=== PATIENT | female | born 1995 | race Asian ===

== ENCOUNTER → 2016-08-02 | Outpatient (CLI) | payer BC, MEDICAID ==
[2016-08-04 07:53] LABS: PROGESTERONE 9.1 ng/mL (.)
== END ==
LOC: LAB 14:10
DX: Z31.41 Encounter for fertility testing (principal); E28.9 Ovarian dysfunction, unspecified; Z11.3 Encounter for screening for infections with a predominantly sexual mode of transmission; Z11.59 Encounter for screening for other viral diseases; Z11.4 Encounter for screening for human immunodeficiency virus [HIV]; Z01.84 Encounter for antibody response examination; Z11.8 Encounter for screening for other infectious and parasitic diseases; Z13.29 Encounter for screening for other suspected endocrine disorder
CPT/HCPCS: 36415; 82670; 84144; 84702

== ENCOUNTER → 2016-08-19 | Outpatient (CLI) | payer BC | LOC: RAD 15:07 | DX: E28.2 Polycystic ovarian syndrome (principal) | CPT/HCPCS: 76830 ==

== ENCOUNTER → 2016-09-03 | Outpatient (CLI) | payer BC | LOC: LAB 15:03 | PROVIDERS: ATTEND Obstetrics & Gynecology Reproductive Endocrinology | DX: E28.9 Ovarian dysfunction, unspecified (principal) | CPT/HCPCS: 36415; 84144; 84702 ==

== ENCOUNTER → 2016-10-01 | Outpatient (CLI) | payer BC | LOC: RAD 15:28 | DX: E28.2 Polycystic ovarian syndrome (principal) | CPT/HCPCS: 76830 ==

== ENCOUNTER → 2016-11-12 | Outpatient (CLI) | payer BC | LOC: LAB 18:45 | DX: E28.2 Polycystic ovarian syndrome (principal) | CPT/HCPCS: 36415; 82670 ==

== ENCOUNTER → 2017-01-18 | Outpatient (CLI) | payer BC ==
--- NOTE | 2017-01-18 14:47 | RADIOLOGY REPORT (SQ) ---
EXAM DESCRIPTION: U/S NON-OB PELVIS TV W/O DOP COMPLETED DATE/TIME: 01/18/2017 2:24 pm REASON FOR STUDY: OVARIAN DYSFUNCTION, UNSPECIFIED (E28.9) E28.9 OVARIAN DYSFUNCTION, UNSPECIFIED COMPARISON: Pelvic ultrasound 10/08/2016, 10/01/2016, 08/19/2016 TECHNIQUE: Dynamic and static grayscale images acquired of the pelvis via transvaginal approach and recorded on PACS. Additional selected color Doppler and spectral images recorded. LIMITATIONS: None. FINDINGS: UTERUS: Contour normal. No mass. ENDOMETRIAL STRIPE: Proliferative triple line pattern, overall thickness 8.5 mm CERVIX: No nabothian cysts. RIGHT OVARY: No abnormal masses. Right ovary is 2.7 x 2.1 x 2.1 cm in size. There are 9 ovarian foll icles identified RIGHT OVARY DOPPLER: Normal arterial vascular flow without evidence for torsion. LEFT OVARY: No abnormal masses. Left ovary 3.1 x 1.9 x 1.4 cm in size. LEFT OVARY DOPPLER: Normal arterial vascular flow without evidence for torsion. There are 7 ovarian follicles identified. FREE FLUID: None noted. OTHER: No other significant finding. IMPRESSION: NORMAL TRANSVAGINAL PELVIC ULTRASOUND. TECHNICAL DOCUMENTATION: JOB ID: [id number] [employer]- All Rights Reserved
== END ==
LOC: RAD 13:12
DX: E28.9 Ovarian dysfunction, unspecified (principal)
CPT/HCPCS: 76830

== ENCOUNTER 2017-03-07 11:10 | Emergency (ER) | payer SELFPAY ==
--- NOTE | 2017-03-07 11:43 | ER Document Report ---
ED Fall - General Chief Complaint: Fall Stated Complaint: FALL,NECK AND BACK PAIN Time Seen by Provider: 03/07/17 11:23 Mode of Arrival: Ambulatory Information source: Patient Notes: 21-year-old female presents to ED for pain in her left upper back. She states she was getting ready to go for work at 530 this morning and she ran upstairs to go to the bathroom tripped going down the stairs fell down the stairs grabbed the rail trying to stop herself and injured her left shoulder and upper back. TRAVEL OUTSIDE OF THE [place] IN LAST 30 DAYS: No - HPI Occurred: This morning Where: Home, Indoors Context: Tripped Associated symptoms: None Location of injury/pain: Back, Shoulder Quality of pain: Sharp Severity: Moderate Pain Level: 3 - Related data Allergies/Adverse Reactions: No Known Allergies Allergy (Verified 03/07/17 11:13) Past Medical History - General Information source: Patient - Social History Smoking Status: Current Every Day Smoker Cigarette use (# per day): Yes - 4 cigarettes a day Chew tobacco use (# tins/day): No Smoking Education Provided: Yes - Less than 2 minutes Frequency of alcohol use: Occasional Drug Abuse: None Occupation: [employer] Lives with: Family Family History: Arthritis, COPD, DM, Malignancy Patient has suicidal ideation: No Patient has homicidal ideation: No - Past Medical History Cardiac Medical History: Reports: None Pulmonary Medical History: Reports: Hx Asthma EENT Medical History: Reports: None Neurological Medical History: Reports: None Endocrine Medical History: Reports: None Renal/ Medical History: Reports: Other - Preeclampsia with high blood pressure , miscarriage in 2016 GI Medical History: Reports: None Musculoskeltal Medical History: Reports Hx Muscle Spasm - wrist sprain, Reports Other - Couple tunnel Skin Medical History: Reports None Psychiatric Medical History: Reports: Hx Depression Traumatic Medical History: Reports: None Infectious Medical History: Reports: None Past Surgical History: Reports: Hx Breast Surgery - Breast lift, Hx Orthopedic Surgery - Carpal tunnel release - Immunizations Immunizations up to date: No Hx Diphtheria, Pertussis, Tetanus Vaccination: No Review of Systems - Review of Systems Constitutional: No symptoms reported EENT: No symptoms reported Cardiovascular: No symptoms reported Respiratory: No symptoms reported Gastrointestinal: No symptoms reported Genitourinary: No symptoms reported Female Genitourinary: No symptoms reported Musculoskeletal: Back pain - Left upper back and shoulder pain, Muscle pain, Muscle stiffness Skin: No symptoms reported Hematologic/Lymphatic: No symptoms reported Neurological/Psychological: No symptoms reported -: Yes All other systems reviewed and negative Physical Exam - Vital signs Vitals: Temp Pulse Resp BP Pulse Ox 98.4 F 113 H 18 140/84 H 98 03/07/17 11:14 03/07/17 11:14 03/07/17 11:14 03/07/17 11:14 03/07/17 11:14 Interpretation: Normal - General General appearance: Appears well, Alert - HEENT Head: Normocephalic, Atraumatic Eyes: Normal Pupils: PERRL - Respiratory Respiratory status: No respiratory distress Chest status: Nontender Breath sounds: Normal Chest palpation: Normal - Cardiovascular Rhythm: Regular Heart sounds: Normal auscultation Murmur: No - Abdominal Inspection: Normal Distension: No distension Bowel sounds: Normal Tenderness: Nontender Organomegaly: No organomegaly - Back Back: Normal, Tender - left upper back and shoulder pain. No: Deformity/step- off, CVA tenderness, Vertebra tenderness, Scars, Scoliosis, Wounds - Extremities General upper extremity: Normal inspection, Nontender, Normal color, Normal ROM , Normal temperature General lower extremity: Normal inspection, Nontender, Normal color, Normal ROM , Normal temperature, Normal weight bearing. No: Ron's sign Shoulder: Tender. No: Limited ROM - Neurological Neuro grossly intact: Yes Cognition: Normal Orientation: AAOx4 Hiral Coma Scale Eye Opening: Spontaneous [place] Coma Scale Verbal: Oriented [place] Coma Scale Motor: Obeys Commands [place] Coma Scale Total: 15 Speech: Normal Motor strength normal: LUE, RUE, LLE, RLE Sensory: Normal - Psychological Associated symptoms: Normal affect, Normal mood - Skin Skin Temperature: Warm Skin Moisture: Dry Skin Color: Normal Course - Re-evaluation Re-evalutation: 03/07/17 21:19 Discussed x-rays with patient and reports given to patient to follow-up with her primary doctor. Patient was discharged home to follow-up with her primary doctor - Vital Signs Vital signs: Temp Pulse Resp BP Pulse Ox 98.2 F 73 16 116/72 98 03/07/17 13:59 03/07/17 13:59 03/07/17 13:59 03/07/17 13:59 03/07/17 13:59 - Diagnostic Test Radiology reviewed: Image reviewed, Reports reviewed Discharge - Discharge Clinical Impression: Fall (on) (from) other stairs and steps, initial encounter Condition: Stable Disposition: HOME, SELF-CARE Instructions: Family Physicians / Practices Additional Instructions: CONTUSION: Your injury has resulted in a contusion -- a crushing of the deep tissues. No injury to important structures was detected during the physician's exam. Contusions vary in the amount of pain they cause, and in the length of time required for healing. Typically, the area will become bruised, and will remain painful to touch for two or three weeks. However, most patients are back to working and playing within a few days. After the initial period of rest and cold-packs, your symptoms (together with the doctor's recommendations) will determine how rapidly you can get back to full activity. Usually this means "do what feels okay, but don't do things that hurt." If re-examination was recommended, it's important to follow up as instructed. Call the doctor or return any time if pain increases, if swelling becomes severe, if you develop numbness or weakness in an injured extremity, or if any other alarming symptoms occur. Rib Contusion You have been diagnosed as having bruised ribs. It will usually take a few weeks for these injured ribs to heal. You should cough or take a deep breath at least every hour or two to prevent lung complications. You should not engage in any strenuous physical activity until released by your physician. The usual rule is "if it hurts, don' t do it." Return if you develop any of the following: (1) Fever or chills. (2) Persistent cough, coughing up blood, or shortness of breath. (3) Increasing pain. (4) Weakness, lightheadedness, or fainting. \\ USE OF TYLENOL (ACETAMINOPHEN): Acetaminophen may be taken for pain relief or fever control. It's much safer than aspirin, offering a wider range of "safe" dosages. It is safe during . Some brand names are Tylenol, Panadol, Datril, Anacin 3, Tempra, and Liquiprin. Acetaminophen can be repeated every four hours. The following are maximum recommended dosages: WEIGHT Dose Drops Elixir Chewable( 80mg) (LBS.) drprs=droppers tsp=teaspoon 6 40 mg 0.4 ml (1/2) 6-11 80 mg 0.8 ml (full) tsp 1 tab 12-16 120 mg 1 1/2 drprs 3/4 tsp 1 1/2 tabs 17-23 160 mg 2 drprs 1 tsp 2 tabs 24-30 240 mg 3 drprs 1 1/2 tsp 3 tabs 30-35 320 mg 2 tsp 4 tabs 36-41 360 mg 2 1/4 tsp 4 1/2 tabs 42-47 400 mg 2 1/2 tsp 5 tabs 48-53 480 mg 3 tsp 6 tabs 54-59 520 mg 3 1/4 tsp 6 1/2 tabs 60-64 560 mg 3 1/2 tsp 7 tabs 65-70 600 mg 3 3/4 tsp 7 1/2 tabs 71-76 640 mg 4 tsp 8 tabs 77-82 720 mg 4 1/2 tsp 9 tabs 83-88 800 mg 5 tsp 10 tabs >89 pounds or adults 650 mg to 900 mg Acetaminophen can be repeated every four hours. Maximum dose not to exceed 4000 mg a day. These maximum recommended dosages are slightly higher than the dosages written on the product container, but these dosages are very safe and below the toxic dosage for acetaminophen. ICE PACKS: Apply ice packs frequently against the painful area. Many different schedules are recommended, such as "20 minutes on, 20 minutes off" or "one hour ice, two hours rest." If you need to work, you may need to go longer between ice treatments. You should plan to have the area ice packed AT LEAST one fourth of the time. The ice should be applied over the wrap, tape, or splint, or over a layer of cloth -- not directly against the skin. Some ice bags have a built-in cloth and can be put directly on the skin. WARM PACKS: After approximately two days, apply gentle heat (such as a heating pad or hot water bottle) for about 20 to 30 minutes about every two hours -- at least four times daily. Warmth and elevation will help you make a more rapid recovery , and will ease the pain considerably. Do not use HOT heat, and never apply heat for longer than 30 minutes. The continuous heat can invisibly damage skin and muscles -- even when no burn is seen on the surface. Damaged muscles can make you MORE sore. USE OF TYYJ-HHE-TASPMDK IBUPROFEN: Ibuprofen (Advil, Nuprin, Medipren, Motrin IB) is a medication for fever and pain control. In addition, it has anti- inflammatory effects which may be beneficial, especially in the treatment of injuries. It's best to take ibuprofen with food. Persons with ulcer disease or allergy to aspirin should notify their physician of this before taking ibuprofen. Ibuprofen can be given every four to six hours, for a total of four doses daily. Age Pain or fever dose Antiinflammatory dose 6-8 yr 200 mg (1 tab) 200 mg (1 tab) 9-11 yr 200 mg (1 tab) 200-400 mg (1-2 tab) 11-14 yr 200-400 mg (1-2 tab) 400 mg (2 tab) 15-adult 400 mg (2 tab) 600 mg (3 tab) FOLLOW-UP CARE: If you have been referred to a physician for follow-up care, call the physician s office for an appointment as you were instructed or within the next two days. If you experience worsening or a significant change in your symptoms, notify the physician immediately or return to the Emergency Department at any time for re-evaluation. Forms: Elevated Blood Pressure, Smoking Cessation Education, Return to Work Referrals: LOCALMD,NO [Primary Care Provider] - Follow up as needed
--- NOTE | 2017-03-07 12:05 | RADIOLOGY REPORT (SQ) ---
EXAM DESCRIPTION: SHOULDER LEFT 2 OR MORE VIEWS COMPLETED DATE/TIME: 03/07/2017 11:58 am REASON FOR STUDY: fall pain COMPARISON: None. NUMBER OF VIEWS: Three views. TECHNIQUE: Internal rotation, external rotation, and Y view images acquired of the left shoulder. LIMITATIONS: None. FINDINGS: MINERALIZATION: Normal. BONES: No acute fracture or dislocation. No worrisome bone lesions. JOINTS: No dislocation. VISUALIZED LUNGS AND RIBS: No pneumothorax. No rib fracture. SOFT TISSUES: No radiopaque foreign body. OTHER: No other significant finding. IMPRESSION: NEGATIVE STUDY OF THE LEFT SHOULDER. NO RADIOGRAPHIC EVIDENCE OF ACUTE INJURY. TECHNICAL DOCUMENTATION: JOB ID: [id number] [employer]- All Rights Reserved
--- NOTE | 2017-03-07 13:13 | RADIOLOGY REPORT (SQ) ---
EXAM DESCRIPTION: RIBS LEFT W/PA CHEST COMPLETED DATE/TIME: 03/07/2017 1:05 pm REASON FOR STUDY: fall pain in ribs COMPARISON: None. TECHNIQUE: Frontal view of the chest and additional views of the left ribs acquired. NUMBER OF VIEWS: Three view. LIMITATIONS: None. FINDINGS: FRONTAL CXR: No pneumothorax. No pleural effusion. No atelectasis or infiltrates. RIBS: No displaced rib fractures. No lytic or blastic bony lesions. OTHER: No other significant finding. IMPRESSION: NO PNEUMOTHORAX. NO DISPLACED RIB FRACTURES. COMMENT: SITE OF TRAUMA/COMPLAINT MARKED/STAMP COMPLETED: YES. TECHNICAL DOCUMENTATION: JOB ID: [id number] [employer]- All Rights Reserved
[2017-03-07 14:02] VITALS: BP 116/72
== END 2017-03-07 14:03 | disposition home or self-care (01) ==
LOC: ER 11:10
DX: M54.2 Cervicalgia (principal); M54.9 Dorsalgia, unspecified; M54.6 Pain in thoracic spine; W10.9XXA Fall (on) (from) unspecified stairs and steps, initial encounter; F17.210 Nicotine dependence, cigarettes, uncomplicated
CPT/HCPCS: 99283

== ENCOUNTER 2017-05-06 20:09 | Emergency (ER) | payer SELFPAY ==
[2017-05-06 20:32] VITALS: BP 126/83
--- NOTE | 2017-05-06 22:18 | ER Document Report ---
ED Hand/Wrist Injury - General Chief Complaint: Wrist Pain Stated Complaint: RIGHT WRIST PAIN Time Seen by Provider: 05/06/17 22:04 Mode of Arrival: Ambulatory Information source: Patient Notes: Patient is a 22-year-old female comes to emergency room complaining of right wrist pain. 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 States that yesterday she was moving what was cardboard and a light weight all of a sudden a heavy metal came down the line patient went to grab it and push it and felt a pop in her right wrist. She states that she was unable to use her right wrist yesterday and went into work today and had the right with her left hand because the discomfort. Patient denies any other injuries. She also states that she is currently being treated for an upper respiratory problem and is on Zithromax and a Sudafed. She states she is only taken BC powders today for discomfort and pain. And that it did help some. Is been doing research on the Internet and feels like she may have a torn ligament or tendon in that area. TRAVEL OUTSIDE OF THE [place] IN LAST 30 DAYS: No - HPI Injury to: Wrist Onset: Other - Yesterday Where: Work, Other - The incident was or did occur at work however patient is now making as a workers comp. She has signed off on it with the [employer] so that she does not get them into trouble. This as as per patient Timing: Constant, Waxing and waning Quality of pain: Achy, Cramping, Throbbing Severity: Moderate Pain Level: 3 - Related Data Allergies/Adverse Reactions: No Known Allergies Allergy (Verified 03/07/17 11:13) Past Medical History - General Information source: Patient - Social History Smoking Status: Never Smoker Family History: Arthritis, COPD, DM, Malignancy Patient has suicidal ideation: No Patient has homicidal ideation: No - Medical History Medical History: Negative - Past Medical History Cardiac Medical History: Reports: None Pulmonary Medical History: Reports: Hx Asthma EENT Medical History: Reports: None Neurological Medical History: Reports: None Endocrine Medical History: Reports: None Renal/ Medical History: Reports: None. Denies: Hx Peritoneal Dialysis Malignancy Medical History: Reports: None GI Medical History: Reports: None Musculoskeltal Medical History: Reports Hx Muscle Spasm - wrist sprain Skin Medical History: Reports None Psychiatric Medical History: Reports: None, Hx Depression Traumatic Medical History: Reports: None Infectious Medical History: Reports: None Past Surgical History: Reports: Hx Breast Surgery - Breast lift, Hx Orthopedic Surgery - Carpal tunnel release - Immunizations Immunizations up to date: No Hx Diphtheria, Pertussis, Tetanus Vaccination: No History of Influenza Vaccine for 05/2017 - 09/2017 Season: No Review of Systems - Review of Systems Constitutional: No symptoms reported EENT: No symptoms reported Cardiovascular: No symptoms reported Respiratory: No symptoms reported Gastrointestinal: No symptoms reported Genitourinary: No symptoms reported Female Genitourinary: No symptoms reported Musculoskeletal: Joint pain, Muscle pain, Muscle stiffness. denies: Deformity Skin: No symptoms reported Hematologic/Lymphatic: No symptoms reported Neurological/Psychological: No symptoms reported -: Yes All other systems reviewed and negative Physical Exam - Vital signs Vitals: Temp Pulse Resp BP Pulse Ox 98.0 F 92 16 126/83 H 97 05/06/17 20:29 05/06/17 20:29 05/06/17 20:29 05/06/17 20:29 05/06/17 20:29 - Notes Notes: On physical exam patient appears to be somewhat uncomfortable. She constantly holds her wrist with her other hand and does not allow you to be touching the area because of the discomfort and pain. - General General appearance: Appears well, Other - Uncomfortable - HEENT Head: Normocephalic, Atraumatic Ears: Normal External canal: Normal Tympanic membrane: Bulging Sinus: Maxillary, Tenderness Nasal: Clear rhinorrhea Mouth/Lips: Normal Mucous membranes: Moist Pharynx: Post nasal drainage. No: Blood in hypopharynx, Peritonsillar abscess Neck: Normal - Respiratory Respiratory status: No respiratory distress, Retractions Breath sounds: Decreased air movement. No: Rhonchi, Stridor, Wheezing Chest palpation: Normal - Cardiovascular Rhythm: Regular Heart sounds: Normal auscultation Murmur: No - Extremities General upper extremity: Tender, Normal temperature. No: Normal ROM, Normal strength Wrist: Tender, Limited ROM, Other - Examination patient's right wrist shows there to be some tenderness on the lateral side of the wrist approximately distal portion of the ulnar area. There is a slight click with flexion extension of the patient has total flexion and extension without any abnormalities. She has good cap refill in nailbeds of the right hand as well as good ulnar radial pulses.. No: Axial load of thumb pain, Deformity, Ecchymosis, Instability Hand: Normal, Nontender. No: Ecchymosis, Instability, Tendon deficit - Neurological Cognition: Normal Orientation: AAOx4 [place] Coma Scale Eye Opening: Spontaneous H[place] Coma Scale Verbal: Oriented [place] Coma Scale Motor: Obeys Commands [place] Coma Scale Total: 15 Speech: Normal - Skin Skin Temperature: Warm Skin Moisture: Dry Skin Color: Normal Skin Turgor: Elastic Course - Vital Signs Vital signs: Temp Pulse Resp BP Pulse Ox 98.0 F 92 16 126/83 H 97 05/06/17 20:29 05/06/17 20:29 05/06/17 20:29 05/06/17 20:29 05/06/17 20:29 - Diagnostic Test Radiology reviewed: Image reviewed, Reports reviewed Radiology results interpreted by me: 05/07/17 00:48 X-rays were reviewed by the radiologist no acute findings were found. Procedures - Immobilization Right Wrist Immobilizer type: Other Performed by: RN, PCT - Velcro wrist splint Post-Proc Neuro Vasc Exam: Normal Alignment checked and good: Yes Discharge - Discharge Clinical Impression: Right wrist sprain Condition: Stable Disposition: HOME, SELF-CARE Additional Instructions: Sprain Your injury is a sprain. A sprain results from stretching or tearing of the ligaments, usually from a twisting injury. The ligaments will require time and protection in order to heal properly. Many sprains are quite disabling and should be taken seriously. The usual initial treatment of sprains is cold packs, elevation, and rest of the injured area. Your physician has assessed the seriousness of your ligament injury, and has outlined a treatment plan. Understand that this treatment may change, depending on how you progress. If a re-examination was recommended, it is important that you follow up as instructed. Call the doctor any time if there is severe pain, numbness, or loss of function in the injured area.Tendonitis The pain you are having is due to tendonitis -- an inflammation around a muscle tendon. It's usually caused by overuse or repeated minor injuries ( strains) of the tendon. Tendonitis can take two to four weeks to heal. In fact, you may actually worsen for a few days despite treatment. Tendonitis is usually treated with rest, local heat, and antiinflammatory medication. Sometimes cold packs are recommended if the tendonitis has just started. If the pain is severe or prolonged, cortisone injections may be required. Call the doctor if pain or swelling become severe, if new discoloration or redness appears, or if numbness is noted. Home rest. Medication as prescribed. Ice to the area after work and moist heat before work. Use the splint for the next 5-7 days. Should you have any concerns or problems or the patient increased return to ER for a recheck and more of a workup. Have suggested follow-up with her primary care within the next 5-7 days also for repeat examination. Prescriptions: Prednisone [Sterapred Ds] 10 mg PO DAILY 6 Days #1 tab.ds.pk Forms: Elevated Blood Pressure, Return to Work
--- NOTE | 2017-05-06 22:46 | RADIOLOGY REPORT (SQ) ---
EXAM DESCRIPTION: WRIST RIGHT 3 VIEWS COMPLETED DATE/TIME: 05/06/2017 10:38 pm REASON FOR STUDY: wrist pain COMPARISON: None. NUMBER OF VIEWS: Three views. TECHNIQUE: AP, lateral, and oblique radiographic images acquired of the right wrist. LIMITATIONS: None. FINDINGS: MINERALIZATION: Normal. BONES: No acute fracture or dislocation. No worrisome bone lesions. Normal alignment. SOFT TISSUES: No soft tissue swelling. No foreign body. OTHER: No other significant finding. IMPRESSION: NEGATIVE STUDY OF THE RIGHT WRIST. NO RADIOGRAPHIC EVIDENCE OF ACUTE INJURY. TECHNICAL DOCUMENTATION: JOB ID: [id number] [employer]- All Rights Reserved
== END 2017-05-07 00:01 | disposition home or self-care (01) ==
LOC: ER 20:09
DX: S63.501A Unspecified sprain of right wrist, initial encounter (principal); M25.531 Pain in right wrist; X58.XXXA Exposure to other specified factors, initial encounter
CPT/HCPCS: 99283; 73110; L3908

== ENCOUNTER 2017-08-19 14:29 | Emergency (ER) | payer BC ==
[2017-08-19] MEDS ORDERED: LIDOCAINE 1% INJ-PF (10 MG/ML) 30 ML SDV INJ ONE (15:15)
[2017-08-19] MEDS ORDERED: DIPH/PERTUSS(ACELL)/TETANUS VAC/PF 0.5 ML SYR (>=10YO) IM ONE (16:14)
--- NOTE | 2017-08-19 16:30 | ER Document Report ---
ED Wound - General Chief Complaint: Laceration Stated Complaint: LACERATION ON FINGER Time Seen by Provider: 08/19/17 16:08 Information source: Patient TRAVEL OUTSIDE OF THE [place] IN LAST 30 DAYS: No - HPI Patient complains to provider of: Laceration Occurred: This morning Onset/Duration: Sudden Quality of pain: Achy Severity: Mild Context: Injury Skin Color: Normal Capillary refill: < 3 seconds Distal pulses present: Yes Associated Symptoms: denies: Foreign body, Odor, Redness, Swelling, Loss of consciousness Notes: Patient arrives with complaints of injury to the left thumb. She states that she accidentally lacerated her interphalangeal joint of the left thumb with a knife when she was trying to remove the cover of a night light. The knife slipped and cut the top of her thumb. She complains of some tingling to the distal aspect of the thumb. Bleeding is controlled. She denies any weakness. She states that she has full flexion and extension. No nausea, vomiting, diarrhea. She denies any other injuries. She is unsure when her last tetanus was. She denies any other complaints at this time. - Related Data Allergies/Adverse Reactions: No Known Allergies Allergy (Verified 08/19/17 14:33) Past Medical History - Social History Smoking Status: Unknown if Ever Smoked Family History: Arthritis, COPD, DM, Malignancy Pulmonary Medical History: Reports: Hx Asthma Renal/ Medical History: Denies: Hx Peritoneal Dialysis Musculoskeltal Medical History: Reports Hx Muscle Spasm - wrist sprain Psychiatric Medical History: Reports: Hx Depression Past Surgical History: Reports: Hx Breast Surgery - Breast lift, Hx Orthopedic Surgery - Carpal tunnel release - Immunizations Immunizations up to date: No Hx Diphtheria, Pertussis, Tetanus Vaccination: No Review of Systems - Review of Systems -: Yes All other systems reviewed and negative Physical Exam - Vital signs Vitals: Temp Pulse Resp BP Pulse Ox 98.1 F 110 H 20 134/88 H 99 08/19/17 15:25 08/19/17 15:25 08/19/17 15:25 08/19/17 15:25 08/19/17 15:25 - Notes Notes: GENERAL: alert, cooperative, nontoxic, no distress. HEAD: normocephalic, atraumatic EYES: conjunctiva pink without discharge, no external redness or swelling. EARS: no external swelling, no external redness NOSE: atraumatic, no external swelling MOUTH/THROAT: mucous membranes moist and pink NECK: soft, supple, full range of motion, no meningismus. CHEST: no distress, lungs clear and equal throughout. No wheezing, rales, rhonchi. CARDIAC: regular rate and rhythm, no murmur, normal capillary refill, normal pulses. BACK: full range of motion, no CVA tenderness. EXTREMITIES: full range of motion of all extremities. No redness, no swelling. 1 cm laceration to the left thumb interphalangeal joint on the dorsal side. Full flexion and extension of the thumb. Normal cap refill. Normal pulses. No active bleeding. No foreign body. No tendon laceration. Slightly decreased sensation to the tip of the thumb. Compartments are soft. Remainder of the hand is normal. NEURO: alert and oriented 3, no focal deficits, full range of motion of all extremities. PYSCH: appropriate mood, affect. Patient is cooperative. SKIN: pink, warm, dry, no rash. Course - Re-evaluation Re-evalutation: 08/19/17 17:26 Patient is nontoxic appearing with stable vitals. The patient accidentally lacerated the interphalangeal joint of her left thumb with a knife earlier today. No tendon laceration. No foreign body. No signs of infection. She has slight decreased sensation to the thumb tip but normal cap refill. The wound was cleaned and sutured. The patient tolerated procedure well no immediate complications. Patient will be discharged home with wound care instructions, instructions to follow-up in 10 days for suture removal, referral to Orth O due to her numbness if this persists. She is instructed to follow up sooner for increased pain, fever, redness, drainage, weakness, any further concerns. The patient's emergency department workup and current diagnosis were explained to the patient and or family. Follow-up instructions were provided. Medications if prescribed were discussed. Instructions for when to return to the emergency department including specific worrisome symptoms were discussed with the patient and/or family. Your blood pressure was elevated during today's visit. Have this rechecked with your doctor. - Vital Signs Vital signs: Temp Pulse Resp BP Pulse Ox 98.1 F 110 H 20 134/88 H 99 08/19/17 15:25 08/19/17 15:25 08/19/17 15:25 08/19/17 15:25 08/19/17 15:25 Procedures - Laceration/Wound Repair left thumb Wound length (cm): 1 Wound's Depth, Shape: Superficial, Linear Laceration pre-procedure: Sterile PPE donned, Sterile drapes applied, Shur- Clens applied Anesthetic type: 1% Lidocaine Wound explored: Clean, No foreign body removed Wound Repaired With: Sutures Suture Size/Type: 5:0, Nylon Number of Sutures: 3 Layer Closure?: No Post-procedure wound care: Sterile dressing applied Post-procedure NV exam normal: Yes Complications: No Discharge - Discharge Clinical Impression: Laceration of left thumb Qualifiers: Encounter type: initial encounter Damage to nail status: without damage Foreign body presence: without foreign body Qualified Code(s): S61.012A - Laceration without foreign body of left thumb without damage to nail, initial encounter Condition: Stable Disposition: HOME, SELF-CARE Instructions: Laceration Care ([facility]), Tetanus Immunization Given ([facility]) Additional Instructions: Take medications as prescribed. Clean wound twice a day with soap and water. Apply thin layer of Polysporin over the laceration. Follow-up in 10 days for suture removal, sooner for increased pain, fever, redness, drainage, any further concerns. Your blood pressure was elevated during today's visit. Have this rechecked with your doctor. Forms: Elevated Blood Pressure, Smoking Cessation Education Referrals: MIHAELA EDGAR MD [ACTIVE STAFF] - Follow up as needed
[2017-08-19 17:40] VITALS: BP 113/72
== END 2017-08-19 17:48 | disposition home or self-care (01) ==
LOC: ER 14:29
DX: S61.012A Laceration without foreign body of left thumb without damage to nail, initial encounter (principal); W26.0XXA Contact with knife, initial encounter; Y93.89 Activity, other specified; R20.2 Paresthesia of skin; J45.909 Unspecified asthma, uncomplicated; R03.0 Elevated blood-pressure reading, without diagnosis of hypertension
CPT/HCPCS: 99283; 90715; 12001; J3490

== ENCOUNTER 2018-06-02 22:51 | Emergency (ER) | payer BC ==
[2018-06-03 00:30] LABS: ABSOLUTE EOSINOPHILS # (AUTO) 2.5 10^3/uL (0.0-0.6); ABSOLUTE LYMPHOCYTES (AUTO) 2.6 10^3/uL (0.5-4.7); ABSOLUTE NEUT (AUTO) 9.6 10^3/uL (1.7-8.2); BASOPHILS % (AUTO) 0.3 % (0-2); EOSINOPHILS % (AUTO) 15.8 % (0-6); HEMATOCRIT 42.2 % (36.0-47.0); HEMOGLOBIN 14.8 g/dL (12.0-15.5); LYMPHOCYTES % (AUTO) 16.3 % (13-45); MEAN CORPUSCULAR HEMOGLOBIN 32.4 pg (27.0-33.4); MEAN CORPUSCULAR HGB CONC 35.2 g/dL (32.0-36.0); MEAN CORPUSCULAR VOLUME 92 fl (80-97); MONOCYTES % (AUTO) 6.1 % (3-13); PLATELET COUNT 243 10^3/uL (150-450); RED BLOOD COUNT 4.58 10^6/uL (3.72-5.28); RED CELL DISTRIBUTION WIDTH 12.3 % (11.5-14.0); SEGMENTED NEUTROPHILS % (AUTO) 61.5 % (42-78); TOTAL CELLS COUNTED % (AUTO) 100 %; WHITE BLOOD COUNT 15.7 10^3/uL (4.0-10.5)
[2018-06-03] MEDS ORDERED: HYOSCYAMINE SULFATE 0.125 MG TABLET PO ONE (01:07)
[2018-06-03] MEDS ORDERED: METOCLOPRAMIDE HCL INJ/PF 10 MG/2 ML SDV IV ONE (01:07)
[2018-06-03] MEDS ORDERED: KETOROLAC TROMETHAMINE INJ/PF 30 MG/1 ML SDV IV ONE (01:07)
[2018-06-03 01:08] LABS: APPEARANCE,URINE SLIGHTLY-CLOUDY; BILIRUBIN,URINE NEGATIVE (NEGATIVE); COLOR,URINE YELLOW; GLUCOSE, URINE NEGATIVE (NEGATIVE); KETONES,URINE TRACE mg/dL (NEGATIVE); LEUKOCYTE ESTERASE,URINE NEGATIVE (NEGATIVE); NITRITE,URINE NEGATIVE (NEGATIVE); PROTEIN,URINE NEGATIVE (NEGATIVE); URINE SPECIFIC GRAVITY 1.033; UROBILINOGEN,URINE NEGATIVE mg/dL (<2.0)
--- NOTE | 2018-06-03 01:09 | ER Document Report ---
ED General - General Chief Complaint: Abdominal Pain Stated Complaint: ABDOMINAL PAIN Time Seen by Provider: 06/03/18 00:50 Notes: Patient is a 23-year old female without chronic medical problems, no prior abdominal surgical history who presents with 4 hours of intermittent generalized abdominal cramping. Patient describes as waves of cramping, generalized abdominal pain most localized to her upper abdomen. She states the pain started after eating dinner tonight and has been ongoing since that time. She states that the pain comes and lasts for several minutes and then resolved. She states crawling up in a ball improves the pain. Nothing worsens the pain. She states that she has had nausea but no vomiting. States that she had a normal bowel movement while waiting in the emergency department. No history of similar pain in the past. She has not seen her general doctor regarding today's concerns. No fever or constitutional symptoms. TRAVEL OUTSIDE OF THE [place] IN LAST 30 DAYS: No - Related Data Allergies/Adverse Reactions: No Known Allergies Allergy (Verified 08/19/17 14:33) Past Medical History - General Information source: Patient - Social History Smoking Status: Never Smoker Frequency of alcohol use: None Drug Abuse: None Lives with: Spouse/Significant other Family History: Arthritis, COPD, DM, Malignancy Pulmonary Medical History: Reports: Hx Asthma Renal/ Medical History: Denies: Hx Peritoneal Dialysis Musculoskeletal Medical History: Reports Hx Muscle Spasm - wrist sprain Psychiatric Medical History: Reports: Hx Depression Past Surgical History: Reports: Hx Breast Surgery - Breast lift, Hx Orthopedic Surgery - Carpal tunnel release - Immunizations Immunizations up to date: No Hx Diphtheria, Pertussis, Tetanus Vaccination: No Review of Systems - Review of Systems Notes: Constitutional: Negative for fever. HENT: Negative for sore throat. Eyes: Negative for visual changes. Cardiovascular: Negative for chest pain. Respiratory: Negative for shortness of breath. Gastrointestinal: Positive for generalized abdominal pain and nausea Genitourinary: Negative for dysuria. Musculoskeletal: Negative for back pain. Skin: Negative for rash. Neurological: Negative for headaches, weakness or numbness. 10 point ROS negative except as marked above and in HPI. Physical Exam - Vital signs Vitals: Temp Pulse Resp BP Pulse Ox 98.4 F 84 16 133/84 H 95 06/02/18 23:02 06/02/18 23:02 06/02/18 23:02 06/02/18 23:02 06/02/18 23:02 Interpretation: Normal Notes: PHYSICAL EXAMINATION: GENERAL: Appears moderately uncomfortable but in no acute distress HEAD: Atraumatic, normocephalic. EYES: Pupils equal round and reactive to light, extraocular movements intact, sclera anicteric, conjunctiva are normal. ENT: nares patent, oropharynx clear without exudates. Moist mucous membranes. NECK: Normal range of motion, supple without lymphadenopathy LUNGS: Breath sounds clear to auscultation bilaterally and equal. No wheezes rales or rhonchi. HEART: Regular rate and rhythm without murmurs ABDOMEN: Soft, mild tenderness to the right upper quadrant and epigastrium but no other areas of localized tenderness., normoactive bowel sounds. No guarding , no rebound. No masses appreciated. EXTREMITIES: Normal range of motion, no pitting or edema. No cyanosis. NEUROLOGICAL: No focal neurological deficits. Moves all extremities spontaneously and on command. PSYCH: Normal mood, normal affect. SKIN: Warm, Dry, normal turgor, no rashes or lesions noted. Course - Re-evaluation Re-evalutation: 06/03/18 01:08 Patient presents with cramping, generalized abdominal pain without any additional symptoms. Abdominal exam is benign without any areas of focal rebound or guarding although does have localization of tenderness to the epigastrium and right upper quadrant. Initial laboratories show a nonspecific leukocytosis. Lipase, LFTs pending. Urinalysis pending although I have very low clinical suspicion for nephrolithiasis or pyelonephritis based on exam. test negative. Do not clinically suspect ovarian pathology based on the dominance of her pain being to the upper abdomen and colicky in nature. Patient does admit to infrequent bowel movements although has had soft, loose stools tonight making constipation unlikely. Pain did start after she ate dinner tonight, biliary colic is on the differential. Right upper quadrant ultrasound will be obtained. Will also obtain a 2 view of the abdomen. 06/03/18 02:19 Labs unremarkable. Lipase normal, no evidence of transaminitis, negative, urinalysis clear. Right upper quadrant ultrasound without any evidence of acute biliary pathology, 2 view abdomen without evidence of obstruction, or significant constipation. No evidence of free air. Repeat abdominal exam remains benign now with no localized tenderness. Patient feels improved after Toradol and how sleeping. IV fluids given for dehydration noted on urinalysis. At this point I have expanded the patient that there is a degree of diagnostic uncertainty regarding the exact etiology of her abdominal pain and presentation. However at this point based on exam, vitals, labs and history do not suspect any acute life-threatening or acute surgical pathology. At this time will discharge with return precautions and follow-up recommendations. Verbal discharge instructions given a the bedside and opportunity for questions given. Medication warnings reviewed. Patient is in agreement with this plan and has verbalized understanding of return precautions and the need for primary care follow-up in the next 24-72 hours. - Vital Signs Vital signs: Temp Pulse Resp BP Pulse Ox 98.4 F 84 16 133/84 H 95 06/02/18 23:02 06/02/18 23:02 06/02/18 23:02 06/02/18 23:02 06/02/18 23:02 - Laboratory Result Diagrams: 06/03/18 00:16 06/03/18 00:55 Laboratory results interpreted by me: 06/03/18 06/03/18 00:16 00:24 WBC 15.7 H Eosinophils % 15.8 H Absolute Neutrophils 9.6 H Absolute Eosinophils 2.5 H Urine Ketones TRACE H - Diagnostic Test Radiology reviewed: Image reviewed, Reports reviewed Radiology results interpreted by me: 06/03/18 02:21 2 view abdomen: No evidence of obstruction or free air Discharge - Discharge Clinical Impression: Generalized abdominal pain, Abdominal cramping Condition: Good Disposition: HOME, SELF-CARE Additional Instructions: You have been seen in the Emergency Department (ED) for abdominal pain. Your evaluation did not identify a clear cause of your symptoms but was generally reassuring. Please follow up with your doctor as soon as possible regarding today's emergent visit and the symptoms that are bothering you. Return to the ED if your abdominal pain worsens or fails to improve, you develop bloody vomiting, bloody diarrhea, you are unable to tolerate fluids due to vomiting, fever greater than 101, or other symptoms that concern you. Prescriptions: Hyoscyamine Sulfate [Levsin-Sl] 0.125 mg SL Q12HP PRN #[id number] tab.subl PRN Reason:
[2018-06-03 01:18] LABS: ALANINE AMINOTRANSFERASE 31 U/L (9-52); ALBUMIN 4.2 g/dL (3.5-5.0); ALKALINE PHOSPHATASE 59 U/L (38-126); ANION GAP 15 (5-19); ASPARTATE AMINO TRANSFERASE 25 U/L (14-36); BILIRUBIN,DIRECT 0.1 mg/dL (0.0-0.4); BILIRUBIN,TOTAL 0.4 mg/dL (0.2-1.3); BLOOD UREA NITROGEN 13 mg/dL (7-20); CARBON DIOXIDE 25 mmol/L (22-30); CHLORIDE 101 mmol/L (98-107); GLUCOSE 103 mg/dL (75-110); LIPASE 36.2 U/L (23-300); POTASSIUM 4.2 mmol/L (3.6-5.0); SODIUM 140.7 mmol/L (137-145)
--- NOTE | 2018-06-03 02:01 | RADIOLOGY REPORT (SQ) ---
EXAM DESCRIPTION: US ABDOMEN LIMITED COMPLETED DATE/TME: 06/03/2018 01:06 CLINICAL HISTORY: 23 years, Female, upper abdominal pain COMPARISON: None. TECHNIQUE: Transverse and longitudinal sonographic images of the right upper quadrant LIMITATIONS: None. FINDINGS: The liver is homogenous in echotexture without focal lesion. No gallstones or gallbladder wall thickening. CBD measures 1.7 mm. This was portions of the pancreas and right kidney are unremarkable. No free fluid in the right upper quadrant. The visualized abdominal aorta is unremarkable. IMPRESSION: Unremarkable exam 2010 [employer]- All Rights Reserved
--- NOTE | 2018-06-03 02:13 | RADIOLOGY REPORT (SQ) ---
EXAM DESCRIPTION: X-ray abdomen two views CLINICAL DATA: 23-year-old female with upper abdominal pain and cramping. TECHNICAL DATA: Two x-ray views of the abdomen were performed including supine and upright images. Comparison: None. FINDINGS: The bowel gas pattern is nonspecific and nonobstructive. There are punctate calcifications in the mid to upper abdomen likely within the gastrointestinal tract . No abnormal air collections are identified. No focal soft tissue abnormalities are seen. The lung bases are clear. No acute osseous abnormalities are identified. There are hypoplastic ribs at T12. IMPRESSION: Nonspecific nonobstructive bowel gas pattern. No acute abnormalities are identified.
[2018-06-03] MEDS ORDERED: DICYCLOMINE HCL INJ 20 MG/2 ML AMPULE IM ONE (02:18)
[2018-06-03] MEDS ORDERED: RINGERS SOLUTION,LACTATED 1,000 ML IV ONE (02:18)
[2018-06-03 03:10] VITALS: BP 118/71
== END 2018-06-03 03:10 | disposition home or self-care (01) ==
LOC: ER 22:51
DX: R10.84 Generalized abdominal pain (principal); R11.0 Nausea; J45.909 Unspecified asthma, uncomplicated
CPT/HCPCS: 99284; 96372; 96374; 96375; 36415; 83690; 84703; 85025; 80053; 81001; 74019; 76705; J0500; J3490; J1885; J2765

== ENCOUNTER → 2018-08-18 | Outpatient (CLI) | payer BC | LOC: OD 13:16 | DX: Z31.9 Encounter for procreative management, unspecified (principal) | CPT/HCPCS: 36415; 84144 ==

== ENCOUNTER → 2018-08-25 | Outpatient (CLI) | payer BC | LOC: OD 11:57 | DX: Z31.9 Encounter for procreative management, unspecified (principal) | CPT/HCPCS: 36415; 84144; 84702 ==

== ENCOUNTER 2019-06-29 01:01 | Emergency (ER) | payer BC ==
[2019-06-29 01:29] LABS: ABSOLUTE EOSINOPHILS # (AUTO) 0.2 10^3/uL (0.0-0.6); ABSOLUTE LYMPHOCYTES (AUTO) 3.2 10^3/uL (0.5-4.7); ABSOLUTE MONOCYTES (AUTO) 0.9 10^3/uL (0.1-1.4); ABSOLUTE NEUT (AUTO) 5.5 10^3/uL (1.7-8.2); BASOPHILS % (AUTO) 0.4 % (0-2); EOSINOPHILS % (AUTO) 2.5 % (0-6); HEMATOCRIT 41.8 % (36.0-47.0); HEMOGLOBIN 14.5 g/dL (12.0-15.5); LYMPHOCYTES % (AUTO) 32.6 % (13-45); MEAN CORPUSCULAR HEMOGLOBIN 31.4 pg (27.0-33.4); MEAN CORPUSCULAR HGB CONC 34.8 g/dL (32.0-36.0); MEAN CORPUSCULAR VOLUME 90 fl (80-97); MONOCYTES % (AUTO) 8.9 % (3-13); PLATELET COUNT 241 10^3/uL (150-450); RED BLOOD COUNT 4.63 10^6/uL (3.72-5.28); RED CELL DISTRIBUTION WIDTH 13.5 % (11.5-14.0); SEGMENTED NEUTROPHILS % (AUTO) 55.6 % (42-78); TOTAL CELLS COUNTED % (AUTO) 100 %; WHITE BLOOD COUNT 9.9 10^3/uL (4.0-10.5)
[2019-06-29 01:32] LABS: APPEARANCE,URINE SLIGHTLY-CLOUDY; BILIRUBIN,URINE NEGATIVE (NEGATIVE); COLOR,URINE YELLOW; GLUCOSE, URINE NEGATIVE (NEGATIVE); KETONES,URINE NEGATIVE (NEGATIVE); LEUKOCYTE ESTERASE,URINE NEGATIVE (NEGATIVE); NITRITE,URINE NEGATIVE (NEGATIVE); PROTEIN,URINE 30 mg/dL (NEGATIVE); URINE SPECIFIC GRAVITY 1.028; UROBILINOGEN,URINE NEGATIVE mg/dL (<2.0)
[2019-06-29 01:51] LABS: ALKALINE PHOSPHATASE 68 U/L (38-126); ANION GAP 9 (5-19); ASPARTATE AMINO TRANSFERASE 25 U/L (14-36); BILIRUBIN,DIRECT 0.1 mg/dL (0.0-0.4); BILIRUBIN,TOTAL 0.2 mg/dL (0.2-1.3); BLOOD UREA NITROGEN 9 mg/dL (7-20); CALCIUM 9.3 mg/dL (8.4-10.2); CARBON DIOXIDE 24 mmol/L (22-30); CHLORIDE 105 mmol/L (98-107); GLUCOSE 100 mg/dL (75-110); TOTAL PROTEIN 7.1 g/dL (6.3-8.2)
--- NOTE | 2019-06-29 03:07 | RADIOLOGY REPORT (SQ) ---
CLINICAL HISTORY: preg, vag bleed COMPARISON: None. 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 pole measures 4 mm by crown-rump length corresponding to six weeks zero days. heart rate is 126 bpm. IMPRESSION: Early live intrauterine gestation.
--- NOTE | 2019-06-29 03:25 | ER Document Report ---
ED GI/ - General Chief Complaint: Vaginal Bleeding Stated Complaint: VAGINAL BLEEDING Time Seen by Provider: 06/29/19 03:24 Primary Care Provider: LETHA WYMAN MD [Primary Care Provider] - Follow up as needed Mode of Arrival: Ambulatory Information source: Patient Notes: Patient is a 24-year-old female G4, P1 presenting to the emergency department with chief complaint of vaginal bleeding in the setting of . Patient reports she is approximately 6 weeks and started having some vaginal bleeding a few hours prior to arrival. Denies passage of any clots, states small amount of bright red blood. 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 She denies any abdominal cramping, abdominal pain or passage of fluid. TRAVEL OUTSIDE OF THE [place] IN LAST 30 DAYS: No - Related Data Allergies/Adverse Reactions: No Known Allergies Allergy (Verified 08/19/17 14:33) Home Medications: Past Medical History - General Information source: Patient - Social History Smoking Status: Never Smoker Family History: Arthritis, COPD, DM, Malignancy Patient has suicidal ideation: No Patient has homicidal ideation: No Pulmonary Medical History: Reports: Hx Asthma Renal/ Medical History: Denies: Hx Peritoneal Dialysis Musculoskeletal Medical History: Reports Hx Muscle Spasm - wrist sprain Psychiatric Medical History: Reports: Hx Depression Past Surgical History: Reports: Hx Breast Surgery - Breast lift, Hx Orthopedic Surgery - Carpal tunnel release - Immunizations Immunizations up to date: No Hx Diphtheria, Pertussis, Tetanus Vaccination: No Review of Systems - Review of Systems Constitutional: No symptoms reported EENT: No symptoms reported Cardiovascular: No symptoms reported Respiratory: No symptoms reported Gastrointestinal: No symptoms reported Genitourinary: No symptoms reported Female Genitourinary: Vaginal bleeding Musculoskeletal: No symptoms reported Skin: No symptoms reported Hematologic/Lymphatic: No symptoms reported Neurological/Psychological: No symptoms reported Physical Exam - Vital signs Vitals: Temp Pulse Resp BP Pulse Ox 98.0 F 103 H 20 138/86 H 98 06/29/19 01:07 06/29/19 01:07 06/29/19 01:07 06/29/19 01:07 06/29/19 01:07 - Notes Notes: PHYSICAL EXAMINATION: GENERAL: Well-appearing, well-nourished and in no acute distress. HEAD: Atraumatic, normocephalic. EYES: Pupils equal round and reactive to light, extraocular movements intact, conjunctiva are normal. ENT: Nares patent, oropharynx clear without exudates. Moist mucous membranes. NECK: Normal range of motion, supple without lymphadenopathy LUNGS: Breath sounds clear to auscultation bilaterally and equal. No wheezes rales or rhonchi. HEART: Regular rate and rhythm without murmurs ABDOMEN: Soft, nontender, nondistended abdomen. No guarding, no rebound. No masses appreciated. Female : No CVA tenderness Musculoskeletal: Normal range of motion, no pitting or edema. No cyanosis. NEUROLOGICAL: Cranial nerves grossly intact. Normal speech, normal gait. Normal sensory, motor exams PSYCH: Normal mood, normal affect. SKIN: Warm, Dry, normal turgor, no rashes or lesions noted. Course - Re-evaluation Re-evalutation: Laboratory 06/29/19 06/29/19 06/29/19 01:15 01:15 01:15 WBC 9.9 RBC 4.63 Hgb 14.5 Hct 41.8 MCV 90 MCH 31.4 MCHC 34.8 RDW 13.5 Plt Count 241 Lymph % (Auto) 32.6 Campbell % (Auto) 8.9 Eos % (Auto) 2.5 Baso % (Auto) 0.4 Absolute Neuts (auto) 5.5 Absolute Lymphs (auto) 3.2 Absolute Monos (auto) 0.9 Absolute Eos (auto) 0.2 Absolute Basos (auto) 0.0 Seg Neutrophils % 55.6 Sodium 138.4 Potassium 4.0 Chloride 105 Carbon Dioxide 24 Anion Gap 9 BUN 9 Creatinine 0.69 Est GFR ( Amer) > 60 Est GFR (MDRD) Non-Af > 60 Glucose 100 Calcium 9.3 Total Bilirubin 0.2 Direct Bilirubin 0.1 Neonat Total Bilirubin Not Reportable Neonat Direct Bilirubin Not Reportable Neonat Indirect Bili Not Reportable AST 25 ALT 17 Alkaline Phosphatase 68 Total Protein 7.1 Albumin 4.0 Beta HCG, Quant 87564.00 H Total Beta HCG POSITIVE Urine Color Urine Appearance Urine pH Ur Specific Orange Urine Protein Urine Glucose (UA) Urine Ketones Urine Blood Urine Nitrite Urine Bilirubin Urine Urobilinogen Ur Leukocyte Esterase Urine WBC (Auto) Urine RBC (Auto) Urine Bacteria (Auto) Squamous Epi Cells Auto Urine Mucus (Auto) Urine Ascorbic Acid Blood Type B POSITIVE Rhogam Indicated RHOGAM NOT INDICATED 06/29/19 01:15 WBC RBC Hgb Hct MCV MCH MCHC RDW Plt Count Lymph % (Auto) Campbell % (Auto) Eos % (Auto) Baso % (Auto) Absolute Neuts (auto) Absolute Lymphs (auto) Absolute Monos (auto) Absolute Eos (auto) Absolute Basos (auto) Seg Neutrophils % Sodium Potassium Chloride Carbon Dioxide Anion Gap BUN Creatinine Est GFR ( Amer) Est GFR (MDRD) Non-Af Glucose Calcium Total Bilirubin Direct Bilirubin Neonat Total Bilirubin Neonat Direct Bilirubin Neonat Indirect Bili AST ALT Alkaline Phosphatase Total Protein Albumin Beta HCG, Quant Total Beta HCG Urine Color YELLOW Urine Appearance SLIGHTLY-CLOUDY Urine pH 6.0 Ur Specific Orange 1.028 Urine Protein 30 H Urine Glucose (UA) NEGATIVE Urine Ketones NEGATIVE Urine Blood MODERATE H Urine Nitrite NEGATIVE Urine Bilirubin NEGATIVE Urine Urobilinogen NEGATIVE Ur Leukocyte Esterase NEGATIVE Urine WBC (Auto) 1 Urine RBC (Auto) 2 Urine Bacteria (Auto) TRACE Squamous Epi Cells Auto <1 Urine Mucus (Auto) FEW Urine Ascorbic Acid NEGATIVE Blood Type Rhogam Indicated Obstetrics Ultrasound 06/29/19 01:23 IMPRESSION: Early live intrauterine gestation. Work-up unremarkable today. Intrauterine noted on ultrasound with appropriate heart rate. Close follow-up with EVAPORATOR SUPERVISOR. A copy of serum hCG levels and copy of ultrasound was provided to patient. Patient has not has had no bleeding here in the emergency department. No indication for worth further work-up. Of note patient is Rh+. The patient's emergency department workup and current diagnosis were explained to the patient and or family. Follow-up instructions were provided. Medications if prescribed were discussed. Instructions for when to return to the emergency department including specific worrisome symptoms were discussed with the patient and/or family. - Vital Signs Vital signs: Temp Pulse Resp BP Pulse Ox 98.1 F 90 16 140/78 H 98 06/29/19 04:01 06/29/19 04:01 06/29/19 04:01 06/29/19 04:01 06/29/19 01:07 - Laboratory Result Diagrams: 06/29/19 01:15 06/29/19 01:15 Laboratory results interpreted by me: 06/29/19 06/29/19 01:15 01:15 Beta HCG, Quant 33665.00 H Urine Protein 30 H Urine Blood MODERATE H Discharge - Discharge Clinical Impression: Vaginal bleeding during Condition: Stable Disposition: HOME, SELF-CARE Additional Instructions: You were seen in the emergency department today with concerns for vaginal bleeding in the setting of . Your blood hormone levels appear to be in the normal range. The ultrasound shows a living intrauterine of 6 weeks 0 days. The heart rate is identified and is in the appropriate ranges. Please keep any and all follow-ups with your EVAPORATOR SUPERVISOR group. Please return to the emergency department for new or worsening symptoms such as bleeding through more than 1 pad per hour for 4 hours consecutively or the passage of large clots. It is possible that this is early implantation bleeding or you could be trying to have a miscarriage. Referrals: ELTHA WYMAN MD [Primary Care Provider] - Follow up as needed
[2019-06-29 04:04] VITALS: BP 140/78
== END 2019-06-29 04:01 | disposition home or self-care (01) ==
LOC: ER 01:01
DX: O46.90 Antepartum hemorrhage, unspecified, unspecified trimester (principal); O99.519 Diseases of the respiratory system complicating pregnancy, unspecified trimester; J45.909 Unspecified asthma, uncomplicated; Z3A.00 Weeks of gestation of pregnancy not specified
CPT/HCPCS: 36415; 76817; 80053; 81001; 84702; 85025; 86900; 86901; 99284

== ENCOUNTER → 2019-07-02 | Outpatient (CLI) | payer BC ==
--- NOTE | 2019-07-02 10:47 | RADIOLOGY REPORT (SQ) ---
EXAM DESCRIPTION: U/S OB TRANSVAGINAL W/O DOP COMPLETED DATE/TIME: 07/02/2019 10:12 am REASON FOR STUDY: GESTATIONAL CARRIER assess viability of embryo COMPARISON: OB ultrasound 06/29/2019 TECHNIQUE: Endovaginal static and realtime grayscale images acquired of the pelvis. Additional selec harvinder spectral and color Doppler images recorded. All images stored on PACs. bHCG: Last menses 05/17/2019, estimated gestational age 6 weeks 4 days LIMITATIONS: None. FINDINGS: No intrauterine gestational sac is identified on today's study. Endometrial stripe measur es 17 to 20 mm in thickness. Irregular mixed echogenicity 1.8 x 1.1 cm diameter material is present in the lower uterine segment, likely retained products of conception. UTERUS: Uterus is 9 x 6 x 4 cm in size. No fibroids. CERVICAL LENGTH: 2.5 cm in length. Closed. RIGHT ADNEXA: Normal ovary with normal vascular flow. Right ovary 3.1 x 1.6 x 1.7 cm in size. No ad nexal free fluid.No adnexal masses. LEFT ADNEXA: Normal ovary with normal vascular flow. Left ovary 2.6 x 1.7 x 1.3 cm in size. No adne xal free fluid.No adnexal masses. FREE FLUID: None. OTHER: No other significant finding. IMPRESSION: No intrauterine gestational sac or embryo is identified. Along the lower uterine segmen t, mixed echogenicity material is present likely residua of the intrauterine seen 9. No free pelvic fluid. Ovaries unremarkable. Trimester of : First trimester - 0 to 13 weeks. TECHNICAL DOCUMENTATION: JOB ID: [id number]- All Rights Reserved rev-12/16 Reading location - IP/workstation name: [email or web address]
== END ==
LOC: RAD 09:41
PROVIDERS: ATTEND Specialist
DX: O24.419 Gestational diabetes mellitus in pregnancy, unspecified control (principal); Z3A.01 Less than 8 weeks gestation of pregnancy
CPT/HCPCS: 76817

== ENCOUNTER → 2019-07-04 | Outpatient (CLI) | payer BC | LOC: OD 11:33 | PROVIDERS: ATTEND Specialist | DX: Z31.9 Encounter for procreative management, unspecified (principal) | CPT/HCPCS: 36415; 84144; 84702 ==

== ENCOUNTER → 2019-08-15 | Outpatient (CLI) | payer BC | LOC: OD 16:02 | PROVIDERS: ATTEND Specialist | DX: Z31.9 Encounter for procreative management, unspecified (principal) | CPT/HCPCS: 36415; 84144; 84702 ==

== ENCOUNTER → 2019-09-28 | Outpatient (CLI) | payer BC | LOC: OD 12:53 | PROVIDERS: ATTEND Specialist | DX: Z31.9 Encounter for procreative management, unspecified (principal) | CPT/HCPCS: 36415; 82670; 84144; 84702 ==

== ENCOUNTER → 2020-02-25 | Outpatient (CLI) | payer BC | LOC: OD 11:49 | PROVIDERS: ATTEND Specialist | DX: Z31.9 Encounter for procreative management, unspecified (principal) | CPT/HCPCS: 36415; 84144; 84702 ==

== ENCOUNTER 2020-03-11 13:53 | Emergency (ER) | payer BC ==
--- NOTE | 2020-03-11 14:18 | ER Document Report ---
ED GI/ - General Chief Complaint: Vag Bleeding, +preg <12wks Stated Complaint: ABDOMINAL PAIN,VAGINAL BLEEDING Time Seen by Provider: 03/11/20 14:09 Primary Care Provider: LETHA WYMAN MD [NO LOCAL MD] - Follow up as needed Mode of Arrival: Ambulatory Information source: Patient Notes: 24-year-old female presented to ED for vaginal bleeding. She is a surrogate carrier. She is 4 para 1. She states she should be about 6 weeks . She states she felt a little bit uncomfortable Tuesday when she went to the bathroom she wiped and noticed there was some blood about 30 minutes ago. She is not having any yogi bleeding. She is alert oriented respirations regular nonlabored speaking in full sentences. She does go to [place] for the clinic so she would like a copy of all of her results. TRAVEL OUTSIDE OF THE [place] IN LAST 30 DAYS: No - HPI Patient complains to provider of: Pelvic pain, , Vaginal bleeding Onset: Just prior to arrival Timing/Duration: Sudden Quality of pain: No pain Severity in ED: None Pain Level: Denies Vaginal bleeding (Compared to normal period): Spotting LMP: surrogate : 4 Para: 1 Associated symptoms: Other - Vaginal bleeding Exacerbated by: Denies Relieved by: Denies Similar symptoms previously: No Recently seen / treated by doctor: Yes - Related Data Allergies/Adverse Reactions: No Known Allergies Allergy (Verified 03/11/20 14:06) Past Medical History - General Information source: Patient Last Menstrual Period: 01/26/2020 - Social History Smoking Status: Never Smoker Chew tobacco use (# tins/day): No Frequency of alcohol use: None Drug Abuse: None Family History: Arthritis, COPD, DM, Malignancy Patient has homicidal ideation: No - Past Medical History Cardiac Medical History: Reports: None Pulmonary Medical History: Reports: Hx Asthma EENT Medical History: Reports: None Neurological Medical History: Reports: None Endocrine Medical History: Reports: None Renal/ Medical History: Reports: None Malignancy Medical History: Reports: None GI Medical History: Reports: None Musculoskeletal Medical History: Reports Hx Muscle Spasm - wrist sprain Skin Medical History: Reports None Psychiatric Medical History: Reports: Hx Depression Traumatic Medical History: Reports: None Infectious Medical History: Reports: None Past Surgical History: Reports: Hx Breast Surgery - Breast lift, Hx Orthopedic Surgery - Carpal tunnel release - Immunizations Immunizations up to date: No Hx Diphtheria, Pertussis, Tetanus Vaccination: No Review of Systems - Review of Systems Constitutional: No symptoms reported EENT: No symptoms reported Cardiovascular: No symptoms reported Respiratory: No symptoms reported Gastrointestinal: No symptoms reported Genitourinary: No symptoms reported Female Genitourinary: , Vaginal bleeding Musculoskeletal: No symptoms reported Skin: No symptoms reported Hematologic/Lymphatic: No symptoms reported Neurological/Psychological: No symptoms reported -: Yes All other systems reviewed and negative Physical Exam - Vital signs Vitals: Temp Pulse Resp BP Pulse Ox 98.6 F 81 16 136/84 H 99 03/11/20 13:56 03/11/20 13:56 03/11/20 13:56 03/11/20 13:56 03/11/20 13:56 Interpretation: Normal - General General appearance: Appears well, Alert - HEENT Head: Normocephalic, Atraumatic Eyes: Normal Pupils: PERRL - Respiratory Respiratory status: No respiratory distress Chest status: Nontender Breath sounds: Normal Chest palpation: Normal - Cardiovascular Rhythm: Regular Heart sounds: Normal auscultation Murmur: No - Abdominal Inspection: Normal Distension: No distension Bowel sounds: Normal Tenderness: Nontender Organomegaly: No organomegaly - Back Back: Normal, Nontender - Extremities General upper extremity: Normal inspection, Nontender, Normal color, Normal ROM, Normal temperature General lower extremity: Normal inspection, Nontender, Normal color, Normal ROM, Normal temperature, Normal weight bearing. No: Ron's sign - Neurological Neuro grossly intact: Yes Cognition: Normal Orientation: AAOx4 [place] Coma Scale Eye Opening: Spontaneous Hiral Coma Scale Verbal: Oriented [place] Coma Scale Motor: Obeys Commands [place] Coma Scale Total: 15 Speech: Normal Motor strength normal: LUE, RUE, LLE, RLE Sensory: Normal - Psychological Associated symptoms: Normal affect, Normal mood - Skin Skin Temperature: Warm Skin Moisture: Dry Skin Color: Normal Course - Re-evaluation Re-evalutation: 03/11/20 18:38 Ultrasound discussed with patient and CD of ultrasound given to patient as she is not living locally. She has a surrogate carrier for another family. Patient did have vaginal spotting but she has a live intrauterine at this time. Patient was given a written report of all of her labs. Patient stated that she was not having pain she was just having spotting and was concerned. - Vital Signs Vital signs: Temp Pulse Resp BP Pulse Ox 98.6 F 96 14 135/70 H 100 03/11/20 17:15 03/11/20 17:15 03/11/20 17:15 03/11/20 17:15 03/11/20 17:15 - Laboratory Result Diagrams: 03/11/20 14:29 03/11/20 14:29 Laboratory results interpreted by me: 03/11/20 03/11/20 14:29 14:38 Sodium 133.3 L Beta HCG, Quant 66527.00 H Urine Blood MODERATE H - Diagnostic Test Radiology reviewed: Image reviewed, Reports reviewed Discharge - Discharge Clinical Impression: Vaginal bleeding affecting early Condition: Stable Disposition: HOME, SELF-CARE Additional Instructions: : You are . care is best started as early in as possible. If you're unsure about continuing this , you should discuss this with your physician or with guest attendant at [facility]. You should take only medications approved by your physician. Acetaminophen can safely be taken for minor pains. As a rule, medication for chronic conditions such as asthma or seizures can safely be continued. You should discuss with the physician every medicine you take. Any regular exercise program can be continued. Talk to your physician, however, before engaging in competitive or demanding sports. Alcohol, smoking, and "street drugs" are dangerous to your baby. Cocaine is especially dangerous. Don't use any illicit drugs! BLEEDING DURING EARLY : You have been evaluated for passing blood while . While we take this symptom very seriously, most women with your degree of bleeding will go on to have a perfectly normal baby. At this time, there is no indication that a miscarriage will occur. (A miscarriage occurs when the fetus is abnormal. There is no medicine or treatment to prevent it.) A more serious cause of bleeding is tubal (or ectopic) . An ultrasound usually can show whether the is in the uterus or in the tube. Sometimes in early , no fetus is seen. In this case, careful follow-up, including repeat blood tests and repeat ultrasound, is necessary. Do not douche or have sex for at least a week, or until OK'd by the doctor. Don't use tampons. Call the doctor or return for re-examination if there is an increase in bleeding or cramping, extreme weakness, fainting, new abdominal pain, fever, or passage of tissue. FOLLOW-UP CARE: If you have been referred to a physician for follow-up care, call the physicians office for an appointment as you were instructed or within the next two days. If you experience worsening or a significant change in your symptoms (very heavy bleeding with large clots of blood, passage of tissue, more severe abdominal / pelvic pain or cramping, feeling faint or severe weakness, fever, etc.), notify the physician immediately or return to the Emergency Department at any time for re-evaluation. OBSTETRIC-GYNECOLOGIC (OB-SLEEVE IRONER) PHYSICIANS IN [place]: [facility] [address] [place] [address] [phone] For active duty and dependents diagnosed with a threatened or miscarriage, you should follow up in the following manner: Standard patients who have a local civilian provider should follow up with that provider. Patients of the Family Practice Clinic should call your Team Nurse at 8:00 am the following morning for further instructions. If you are neither a Standard patient nor a patient of the Family Practice Clinic, you should follow up at the [facility] ([facility]). Patients already enrolled in the [facility] OB Clinic, Prime patients not assigned to the Family Practice Clinic, and Active Duty patients not assigned to Family Practice Clinic should report to the [facility] Lab at 8:00 am the next morning that the [facility] OB Clinic is open and then you will be seen in the OB Clinic at 11:00 am. Forms: Elevated Blood Pressure Referrals: LETHA WYMAN MD [NO LOCAL MD] - Follow up as needed
[2020-03-11 14:59] LABS: APPEARANCE,URINE CLEAR; BILIRUBIN,URINE NEGATIVE (NEGATIVE); COLOR,URINE YELLOW; GLUCOSE, URINE NEGATIVE (NEGATIVE); KETONES,URINE NEGATIVE (NEGATIVE); LEUKOCYTE ESTERASE,URINE NEGATIVE (NEGATIVE); NITRITE,URINE NEGATIVE (NEGATIVE); PROTEIN,URINE NEGATIVE (NEGATIVE); URINE SPECIFIC GRAVITY 1.012; UROBILINOGEN,URINE NEGATIVE mg/dL (<2.0)
[2020-03-11 15:22] LABS: ABSOLUTE EOSINOPHILS # (AUTO) 0.2 10^3/uL (0.0-0.6); ABSOLUTE LYMPHOCYTES (AUTO) 2.1 10^3/uL (0.5-4.7); ABSOLUTE MONOCYTES (AUTO) 0.8 10^3/uL (0.1-1.4); ABSOLUTE NEUT (AUTO) 7.2 10^3/uL (1.7-8.2); BASOPHILS % (AUTO) 0.3 % (0-2); EOSINOPHILS % (AUTO) 1.6 % (0-6); HEMATOCRIT 44.8 % (36.0-47.0); HEMOGLOBIN 15.5 g/dL (12.0-15.5); MEAN CORPUSCULAR HEMOGLOBIN 31.9 pg (27.0-33.4); MEAN CORPUSCULAR HGB CONC 34.6 g/dL (32.0-36.0); MEAN CORPUSCULAR VOLUME 92 fl (80-97); MONOCYTES % (AUTO) 7.8 % (3-13); PLATELET COUNT 254 10^3/uL (150-450); RED BLOOD COUNT 4.86 10^6/uL (3.72-5.28); RED CELL DISTRIBUTION WIDTH 13.2 % (11.5-14.0); SEGMENTED NEUTROPHILS % (AUTO) 70.3 % (42-78); TOTAL CELLS COUNTED % (AUTO) 100 %; WHITE BLOOD COUNT 10.2 10^3/uL (4.0-10.5)
[2020-03-11 15:41] LABS: ALBUMIN 4.4 g/dL (3.5-5.0); ALKALINE PHOSPHATASE 54 U/L (38-126); ANION GAP 7 (5-19); ASPARTATE AMINO TRANSFERASE 23 U/L (14-36); BILIRUBIN,TOTAL 0.4 mg/dL (0.2-1.3); BLOOD UREA NITROGEN 10 mg/dL (7-20); CALCIUM 10.1 mg/dL (8.4-10.2); CARBON DIOXIDE 23 mmol/L (22-30); CHLORIDE 103 mmol/L (98-107); GLUCOSE 97 mg/dL (75-110); POTASSIUM 4.4 mmol/L (3.6-5.0); TOTAL PROTEIN 7.6 g/dL (6.3-8.2)
--- NOTE | 2020-03-11 16:49 | RADIOLOGY REPORT (SQ) ---
EXAM DESCRIPTION: U/S OB TRANSVAGINAL W/O DOP IMAGES COMPLETED DATE/TIME: 03/11/2020 4:35 pm REASON FOR STUDY: Vaginal bleeding COMPARISON: None. TECHNIQUE: Transvaginal static and realtime grayscale images acquired of the pelvis. Additional tanya cted spectral and color Doppler images recorded. All images stored on PACs. [id number]. CLINICAL DATES: 6 week 3 day. LIMITATIONS: None. FINDINGS: FETUS: Single Living intrauterine . ULTRASOUND EGA: 6 week 3 day. ULTRASOUND SINGH: 11/01/2020. EFW: Not applicable less than 20 weeks. CRL: 0.61 cm. FHR: 124 beats per minute. SURVEY: No visualized anomalies. AMNIOTIC FLUID: Adequate amount. PLACENTA: Not yet developed due to early gestation. SUBCHORIONIC BLEED: No. SIZE OF BLEED: Not applicable. UTERUS: No masses. No anomalies. CERVICAL LENGTH: 2.4 cm. Closed. RIGHT ADNEXA: Normal ovary with normal vascular flow. No adnexal free fluid. No adnexal masses. LEFT ADNEXA: Normal ovary with normal vascular flow. No adnexal free fluid. No adnexal masses. FREE FLUID: None. OTHER: No other significant finding. IMPRESSION: LIVING INTRAUTERINE . EGA 6 WEEK 3 DAY. Trimester of : First trimester - 0 to 13 weeks. TECHNICAL DOCUMENTATION: JOB ID: [id number] 2010 [email or web address]- All Rights Reserved rev-12/16 Reading location - IP/workstation name: [email or web address]
[2020-03-11 17:27] VITALS: BP 135/70
== END 2020-03-11 17:22 | disposition home or self-care (01) ==
LOC: ER 13:53
DX: O20.9 Hemorrhage in early pregnancy, unspecified (principal); O26.891 Other specified pregnancy related conditions, first trimester; R10.2 Pelvic and perineal pain; O99.511 Diseases of the respiratory system complicating pregnancy, first trimester; J45.909 Unspecified asthma, uncomplicated; Z3A.01 Less than 8 weeks gestation of pregnancy
CPT/HCPCS: 36415; 76817; 80053; 81001; 84702; 85025; 86900; 86901; 99284

== ENCOUNTER 2020-04-12 11:43 | Emergency (ER) | payer BC ==
--- NOTE | 2020-04-12 11:56 | ER Document Report ---
ED Medical Screen (RME) - General Chief Complaint: Vaginal Discharge Stated Complaint: VAGINAL DISCHARGE,CRAMPING Time Seen by Provider: 04/12/20 11:48 Primary Care Provider: PHI MCMAHON PA-C [Primary Care Provider] - Follow up as needed Notes: Patient presents 11 weeks G6, P1. Patient is a gestational surrogate. Patient has had multiple miscarriages in the past with surrogacy. Patient reports vaginal discharge for the past 3 weeks and is concerned about pelvic infection. Patient last saw the fertility specialist a week ago. I have greeted and performed a rapid initial assessment of this patient. A comprehensive ED assessment and evaluation of the patient, analysis of test results and completion of the medical decision making process will be conducted by additional ED providers. TRAVEL OUTSIDE OF THE [place] IN LAST 30 DAYS: No - Related Data Allergies/Adverse Reactions: No Known Allergies Allergy (Verified 04/12/20 11:48) Past Medical History Pulmonary Medical History: Reports: Hx Asthma Renal/ Medical History: Denies: Hx Peritoneal Dialysis Musculoskeltal Medical History: Reports Hx Muscle Spasm - wrist sprain Psychiatric Medical History: Reports: Hx Depression Past Surgical History: Reports: Hx Breast Surgery - Breast lift, Hx Orthopedic Surgery - Carpal tunnel release - Immunizations Immunizations up to date: No Hx Diphtheria, Pertussis, Tetanus Vaccination: No Physical Exam - Vital signs Vitals: Temp Pulse Resp BP Pulse Ox 98.8 F 104 H 18 149/92 H 97 04/12/20 11:46 04/12/20 11:46 04/12/20 11:46 04/12/20 11:46 04/12/20 11:46 - General General appearance: Appears well, Alert In distress: None - Psychological Associated symptoms: Anxious Course - Vital Signs Vital signs: Temp Pulse Resp BP Pulse Ox 98.8 F 104 H 18 149/92 H 97 04/12/20 11:46 04/12/20 11:46 04/12/20 11:46 04/12/20 11:46 04/12/20 11:46 Doctor's Discharge - Discharge Referrals: PHI MCMAHON PA-C [Primary Care Provider] - Follow up as needed
[2020-04-12 12:35] LABS: ABSOLUTE EOSINOPHILS # (AUTO) 0.1 10^3/uL (0.0-0.6); ABSOLUTE LYMPHOCYTES (AUTO) 1.9 10^3/uL (0.5-4.7); ABSOLUTE MONOCYTES (AUTO) 0.6 10^3/uL (0.1-1.4); ABSOLUTE NEUT (AUTO) 6.4 10^3/uL (1.7-8.2); BASOPHILS % (AUTO) 0.4 % (0-2); EOSINOPHILS % (AUTO) 1.6 % (0-6); MEAN CORPUSCULAR HEMOGLOBIN 32.8 pg (27.0-33.4); MEAN CORPUSCULAR HGB CONC 35.7 g/dL (32.0-36.0); MEAN CORPUSCULAR VOLUME 92 fl (80-97); MONOCYTES % (AUTO) 6.2 % (3-13); PLATELET COUNT 207 10^3/uL (150-450); RED BLOOD COUNT 4.58 10^6/uL (3.72-5.28); RED CELL DISTRIBUTION WIDTH 12.8 % (11.5-14.0); SEGMENTED NEUTROPHILS % (AUTO) 70.8 % (42-78); TOTAL CELLS COUNTED % (AUTO) 100 %; WHITE BLOOD COUNT 9.1 10^3/uL (4.0-10.5)
--- NOTE | 2020-04-12 12:36 | RADIOLOGY REPORT (SQ) ---
EXAM DESCRIPTION: U/S [id number] TRNABD 1GES W/ODOP IMAGES COMPLETED DATE/TIME: 04/12/2020 12:23 pm REASON FOR STUDY: pelvic pain COMPARISON: Ob ultrasound 03/11/2020 TECHNIQUE: Multiple static and realtime grayscale images acquired of the pelvis. Additional selected spectral and color Doppler images recorded. All images stored on PACs. bHCG: Not available. CLINICAL DATES: EGA 11 weeks 1 day (last menstrual period: 01/25/2020) LIMITATIONS: None. FINDINGS: FETUS: Single Living intrauterine . ULTRASOUND EGA: 11 weeks 1 day ULTRASOUND SINGH: 10/31/2020 EFW: Not applicable less than 20 weeks. CRL: 4.3 cm FHR: 168 beats per minute. SURVEY: No visualized anomalies. AMNIOTIC FLUID: Adequate amount. PLACENTA: Not yet developed due to early gestation. SUBCHORIONIC BLEED: None SIZE OF BLEED: Not applicable. UTERUS: No masses. No anomalies. CERVICAL LENGTH: 2.48 cm Closed. RIGHT ADNEXA: The right ovary was not visualized. No adnexal free fluid. No adnexal masses. LEFT ADNEXA: The left ovary was not visualized. No adnexal free fluid. No adnexal masses. FREE FLUID: None. OTHER: No other significant finding. IMPRESSION: Single live intrauterine gestation with an estimated gestational age of 11 weeks 1 day. There has been appropriate interval growth. Borderline low cervical length at 2.48 cm. Nonvisualization of the bilateral ovaries. Trimester of : First trimester - 0 to 13 weeks. TECHNICAL DOCUMENTATION: JOB ID: [id number] 2010 [employer]- All Rights Reserved Reading location - IP/workstation name: [email or web address]
--- NOTE | 2020-04-12 12:50 | ER Document Report ---
ED GI/ - General Chief Complaint: Vaginal Discharge Stated Complaint: VAGINAL DISCHARGE,CRAMPING Time Seen by Provider: 04/12/20 11:48 Primary Care Provider: PHI MCMAHON PA-C [Primary Care Provider] - Follow up as needed Notes: Patient is a 25-year-old G6, P1 female who is 11 weeks who presents emergency department with vaginal discharge. Patient states that her discharge started about 2 days ago. Patient states that she has been sexually active, " but not vigorous." Patient is currently on estrogen and progesterone. She has been a surrogate multiple times, but has miscarried all of them. Her only child is her only successful . States that she has a history of endometritis. Denies any other medical problems. Denies any fever, body aches, chills, headache, or any other symptoms. States that she does have slight abdominal cramping. TRAVEL OUTSIDE OF THE [place] IN LAST 30 DAYS: No - Related Data Allergies/Adverse Reactions: No Known Allergies Allergy (Verified 04/12/20 11:48) Past Medical History - Social History Smoking Status: Former Smoker Family History: Arthritis, COPD, DM, Malignancy Patient has homicidal ideation: No Pulmonary Medical History: Reports: Hx Asthma Renal/ Medical History: Denies: Hx Peritoneal Dialysis Musculoskeletal Medical History: Reports Hx Muscle Spasm - wrist sprain Psychiatric Medical History: Reports: Hx Depression Past Surgical History: Reports: Hx Breast Surgery - Breast lift, Hx Orthopedic Surgery - Carpal tunnel release - Immunizations Immunizations up to date: No Hx Diphtheria, Pertussis, Tetanus Vaccination: No Review of Systems - Review of Systems Notes: REVIEW OF SYSTEMS: CONSTITUTIONAL : Denies recent illness. Denies recent unintentional weight loss. Denies fever, chills, or sweats. EENT: Denies eye, ear, throat, or mouth pain, discharge, or symptoms. Denies nasal or sinus congestion. CARDIOVASCULAR: Denies chest pain. RESPIRATORY: Denies shortness of breath, cough, congestion, difficulty breathing, or wheezing. GASTROINTESTINAL: Denies nausea, vomiting, and diarrhea. Denies constipation. See HPI. GENITOURINARY: Denies difficulty urinating, burning, blood in urine, urgency or frequency. FEMALE GENITOURINARY: See HPI. MUSCULOSKELETAL: Denies neck and back pain. Denies joint pain or swelling. SKIN: Denies rash, itchiness, or lesions HEMATOLOGIC : Denies easy bruising or bleeding. LYMPHATIC: Denies swollen, painful, enlarged glands. NEUROLOGICAL: Denies no numbness or tingling denies weakness. Denies headache. Denies altered mental status. Denies alteration in speech. PSYCHIATRIC: Denies stress, anxiety, alteration in sleep patterns, or depression. All other systems reviewed and negative. Physical Exam - Vital signs Vitals: Temp Pulse Resp BP Pulse Ox 98.8 F 104 H 18 149/92 H 97 04/12/20 11:46 04/12/20 11:46 04/12/20 11:46 04/12/20 11:46 04/12/20 11:46 - Notes Notes: PHYSICAL EXAMINATION: GENERAL: Appears well, healthy, well-nourished, no acute distress. HEAD: Normocephalic, atraumatic. EYES: PERRL, conjunctiva normal, all extraocular movements intact, sclera nonicteric ENT: Moist mucous membranes. NECK: Supple, no noticeable swelling, redness, rash. Normal range of motion. LUNGS: Equal breath sounds bilaterally and clear to auscultation. No wheezes rales or rhonchi. CARDIOVASCULAR: S1-S2, regular rate, regular rhythm. Radial pulses 2+, normal. ABDOMEN: Normoactive bowel sounds. Soft, nontender, no guarding, no rebound tenderness, and no masses palpated. EXTREMITIES: Normal strength and range of motion, no pitting or edema. No cyanosis. NEUROLOGICAL: Moves all extremities upon command. Strength 5/5 in all extremities. PSYCH: Normal mood, normal affect. SKIN: Warm, dry. No rash, lesions, ulcerations noted. Normal skin turgor. LOCOMOTIVE LUBRICATING SYSTEMS CLERK: Discharge in vaginal canal, most likely from patient's progesterone suppository. Course - Re-evaluation Re-evalutation: 04/12/20 13:27 KEZIA Wolfe at bedside for pelvic exam. Amount of white discharge noted. Ultrasound shows a live intrauterine . Hematology is unremarkable. Awaiting hCG levels. 04/12/20 14:10, hCG is 74,331, consistent with her . Urinalysis is unremarkable. Patient has 3+ epithelial cells and 4+ bacteria noted on wet mount. We will start the patient on transvaginal metronidazole. Patient has a follow-up a ppointment with her OB this week. Advised her to follow-up a little sooner if possible. She is in agreement with this plan. Follow-up precautions were given. Verbal discharge instructions were given to the patient. They verbalized understanding. They are stable for discharge. - Vital Signs Vital signs: Temp Pulse Resp BP Pulse Ox 98.3 F 77 18 133/79 H 100 04/12/20 14:23 04/12/20 14:20 04/12/20 14:20 04/12/20 14:20 04/12/20 14:20 - Laboratory Result Diagrams: 04/12/20 12:04 Laboratory results interpreted by me: 04/12/20 12:04 Beta HCG, Quant 47124.00 H Discharge - Discharge Clinical Impression: Vaginal discharge, Bacterial vaginosis in Condition: Stable Disposition: HOME, SELF-CARE Additional Instructions: You were seen today in the emergency department for vaginal discharge. Your labs show that you have bacterial vaginosis. Please the medication your vagina at night for the next 5 days. See if he can follow-up with your ORNAMENTAL METAL E[employer]OR APPRENTICE sooner than . Let them know that you were seen here in the emergency department. Prescriptions: Metronidazole [Metrogel 0.75% Vaginal Gel] 5 applic VG QHS 5 Days #1 tube Referrals: PHI MCMAHON PA-C [Primary Care Provider] - Follow up as needed
[2020-04-12 13:38] LABS: BACTERIA (WET MOUNT) 4+ BACTERIA SEEN; EPITHELIALS (WET MOUNT) 3+ EPITHELIALS SEEN; T.VAGINALIS (WET MOUNT) COULD NOT PERFORM; WBCS (WET MOUNT) COULD NOT PERFORM; YEAST (WET MOUNT) COULD NOT PERFORM
[2020-04-12 13:47] LABS: APPEARANCE,URINE CLEAR; BILIRUBIN,URINE NEGATIVE (NEGATIVE); COLOR,URINE YELLOW; GLUCOSE, URINE NEGATIVE (NEGATIVE); KETONES,URINE NEGATIVE (NEGATIVE); LEUKOCYTE ESTERASE,URINE NEGATIVE (NEGATIVE); NITRITE,URINE NEGATIVE (NEGATIVE); PROTEIN,URINE NEGATIVE (NEGATIVE); URINE SPECIFIC GRAVITY 1.018; UROBILINOGEN,URINE NEGATIVE mg/dL (<2.0)
[2020-04-12 14:23] VITALS: BP 133/79
[2020-04-12 15:04] LABS: CHLAM PCR NOT DETECTED (NOT DETECT)
== END 2020-04-12 14:23 | disposition home or self-care (01) ==
LOC: ER 11:43
DX: O23.591 Infection of other part of genital tract in pregnancy, first trimester (principal); B96.89 Other specified bacterial agents as the cause of diseases classified elsewhere; Z3A.11 11 weeks gestation of pregnancy
CPT/HCPCS: 36415; 76801; 81001; 84702; 85025; 87210; 87491; 87591; 99284